=== PATIENT | female | born 1940 | race Two or more races ===

== ENCOUNTER 2024-02-18 15:50 | Inpatient (IN) | payer MEDICARE, OTHER ==
[~2024-02-18] VITALS: Ht 165.1 cm; Wt 64.4 kg
[2024-02-18] MEDS ORDERED: ACETAMINOPHEN 325 MG TABLET PO PRN (16:15)
[2024-02-18 17:30] VITALS: BP 99/56; PULSE 92; RESP 18; TEMP 97.4; O2SAT 96
[2024-02-18] MEDS ORDERED: POLYETHYLENE GLYCOL 3350 17 GM PACKET PO PRN (17:30)
[2024-02-18 17:31] LABS: APPEARANCE,URINE CLEAR (CLEAR); BILIRUBIN,URINE NEGATIVE (NEGATIVE); COLOR,URINE YELLOW (YELLOW); GLUCOSE, URINE (UA) NEGATIVE (NEGATIVE); KETONES,URINE NEGATIVE (NEGATIVE); LEUKOCYTE ESTERASE ,URINE LARGE (NEGATIVE); NITRATE,URINE NEGATIVE (NEGATIVE); OCCULT BLOOD,URINE TRACE (NEGATIVE); PH,URINE 6.5 (5.0-8.0); PROTEIN,URINE 30-70 mg/dL (NEGATIVE); SPECIFIC GRAVITIY, URINE 1.016 (1.003-1.030)
[2024-02-18 17:41] LABS: BACTERIA,URINE Few /HPF (None Seen); RBC,URINE 0-2 /HPF (0-2); SQUAMOUS EPITHELIAL CELL,UR Rare /LPF (None Seen)
[2024-02-18] MEDS ORDERED: APIXABAN 2.5 MG TABLET PO SCH (21:00)
[2024-02-18 21:06] VITALS: BP 112/73; PULSE 100; RESP 18; TEMP 97.9; O2SAT 98
[2024-02-18] MEDS: MELATONIN 3 MG TABLET PO SCH (21:20)
[2024-02-18] MEDS: APIXABAN 2.5 MG TABLET PO SCH (21:20)
[2024-02-18] MEDS: ATORVASTATIN CALCIUM 40 MG TABLET PO SCH (21:21)
[2024-02-18] MEDS: METOPROLOL TARTRATE 25 MG TABLET PO SCH (21:21)
[2024-02-18 23:26] VITALS: O2SAT 98
[2024-02-19] MEDS: ALENDRONATE SODIUM 70 MG TABLET PO SCH (05:44)
[2024-02-19 05:58] LABS: BASOPHILS % (AUTO) 0.9 % (0.0-2.0); EOSINOPHILS % (AUTO) 1.8 % (1.0-6.0); HEMATOCRIT 37.4 % (36-46); HEMOGLOBIN 12.3 g/dL (12.0-16.0); LYMPHOCYTES # (AUTO) 1.7 K/uL (1.0-4.8); LYMPHOCYTES % (AUTO) 22.1 % (22.0-44.0); MEAN CORPUSCULAR HEMOGLOBIN 30.1 pg (26.0-34.0); MEAN CORPUSCULAR HGB CONC 32.8 G/dL (31.0-37.0); MEAN CORPUSCULAR VOLUME 92 fL (80-100); MONOCYTES # (AUTO) 0.7 K/uL (0.1-1.0); NEUTROPHILS # (AUTO) 5.1 K/uL (1.8-7.7); NEUTROPHILS % (AUTO) 66.2 % (40.0-70.0); PLATELET COUNT (AUTO) 334 K/uL (150-450); RED BLOOD CELL COUNT(AUTO) 4.09 MIL/uL (4.00-5.20); RED CELL DISTRIBUTION WIDTH 13.9 % (11.5-14.5); WHITE BLOOD COUNT (AUTO) 7.7 K/uL (4.5-11.0)
[2024-02-19 06:25] LABS: ALANINE AMINOTRANSFERASE 26 U/L (12-78); ALBUMIN 2.5 g/dL (3.4-5.0); ALKALINE PHOSPHATASE 112 U/L (46-116); ANION GAP 1 mmol/L (8-16); ASPARTATE AMINOTRANSFERASE 26 U/L (15-37); BILIRUBIN,TOTAL 0.7 mg/dL (0.1-1.0); CALCIUM, TOTAL 8.7 mg/dL (8.8-10.5); CARBON DIOXIDE 35 mmol/L (22-29); CHLORIDE 102 mmol/L (98-107); CREATININE 0.71 mg/dL (0.60-1.30); GLOMERULAR FILTR. RATE CALC > 60 mL/min (>60); GLUCOSE,RANDOM 118 mg/dL (70-110); SODIUM SERUM 138 mmol/L (136-145); TOTAL PROTEIN, SERUM 6.7 g/dL (6.4-8.2); UREA NITROGEN, BLOOD 22 mg/dL (7-18)
[2024-02-19] MEDS: LEVOTHYROXINE SODIUM 50 MCG TABLET PO SCH (06:30)
[2024-02-19] MEDS: FLUTICASONE FUROATE 100 MCG/INH INHALER [14] IH SCH (08:13)
[2024-02-19] MEDS: CHOLECALCIFEROL (VIT D3) 1,000 UNITS [25 MCG] TABLET PO SCH (08:14)
[2024-02-19] MEDS: FAMOTIDINE 20 MG TABLET PO SCH (08:14)
[2024-02-19] MEDS: ASPIRIN 81 MG CHEWABLE TABLET PO SCH (08:14)
[2024-02-19] MEDS: ETHYL ALCOHOL 62% ANTISEPTIC NASAL SANITIZER 0.6 ML AMPUL NASAL SCH (08:15)
[2024-02-19 09:00] VITALS: BP 139/64; PULSE 87; RESP 18; TEMP 98.1; O2SAT 98
[2024-02-19] MEDS: NITROFURANTOIN MACROCRYSTAL 100 MG CAPSULE PO SCH (09:27)
[2024-02-19 09:47] VITALS: O2SAT 98
[2024-02-19 16:30] VITALS: BP 128/72; PULSE 74; RESP 18; TEMP 98.6; O2SAT 98
[2024-02-19 20:00] VITALS: O2SAT 98
[2024-02-19 21:00] VITALS: BP 112/52; PULSE 77; RESP 18; TEMP 97.7; O2SAT 98
[2024-02-19 22:00] VITALS: BP 104/59; PULSE 95; RESP 18; O2SAT 98
[2024-02-19] MEDS: NITROFURANTOIN MONOHYD/M-CRYST 100 MG CAPSULE [MACROBID] PO SCH (22:39)
[2024-02-20 08:00] VITALS: BP 105/58; PULSE 91; RESP 19; TEMP 97.6; O2SAT 97
[2024-02-20 08:15] VITALS: BP 113/58; PULSE 86; RESP 18
[2024-02-20 08:36] LABS: GLUCOMETER DEV NAME(LOC) 2WR.2B; GLUCOSE,POINT OF CARE 149 MG/DL (70-110)
[2024-02-20] MEDS: FUROSEMIDE 20 MG TABLET PO SCH (08:46)
[2024-02-20 10:00] VITALS: BP 93/46; PULSE 83; RESP 18
[2024-02-20 11:08] VITALS: BP 105/57; PULSE 59; RESP 18
[2024-02-20 16:25] VITALS: BP 110/75; PULSE 69; RESP 18
[2024-02-20] MEDS: METOPROLOL TARTRATE 25 MG TABLET PO SCH (16:28)
[2024-02-20 21:00] VITALS: BP 112/65; PULSE 88; RESP 18; TEMP 98; O2SAT 96
[2024-02-20] MEDS: PSYLLIUM SEED ORANGE SF 5.8 GM/PACKET PO SCH (21:54)
[2024-02-21] VITALS (8 sets, daily range): BP systolic 98–120; BP diastolic 59–74; PULSE 64–88; RESP 18; TEMP 97.7–98.6; O2SAT 97–99
[2024-02-21 09:30] LABS: BASOPHILS % (AUTO) 0.9 % (0.0-2.0); EOSINOPHILS % (AUTO) 3.6 % (1.0-6.0); HEMATOCRIT 36.5 % (36-46); HEMOGLOBIN 12.3 g/dL (12.0-16.0); LYMPHOCYTES # (AUTO) 1.8 K/uL (1.0-4.8); LYMPHOCYTES % (AUTO) 20.2 % (22.0-44.0); MEAN CORPUSCULAR HEMOGLOBIN 30.9 pg (26.0-34.0); MEAN CORPUSCULAR HGB CONC 33.7 G/dL (31.0-37.0); MEAN CORPUSCULAR VOLUME 92 fL (80-100); MONOCYTES # (AUTO) 0.7 K/uL (0.1-1.0); MONOCYTES % (AUTO) 7.5 % (2.0-9.0); NEUTROPHILS % (AUTO) 67.8 % (40.0-70.0); PLATELET COUNT (AUTO) 345 K/uL (150-450); RED BLOOD CELL COUNT(AUTO) 3.99 MIL/uL (4.00-5.20); RED CELL DISTRIBUTION WIDTH 14.7 % (11.5-14.5); WHITE BLOOD COUNT (AUTO) 8.9 K/uL (4.5-11.0)
[2024-02-21 09:40] LABS: ANION GAP 1 mmol/L (8-16); CALCIUM, TOTAL 8.7 mg/dL (8.8-10.5); CARBON DIOXIDE 33 mmol/L (22-29); CHLORIDE 101 mmol/L (98-107); CREATININE 0.68 mg/dL (0.60-1.30); GLOMERULAR FILTR. RATE CALC > 60 mL/min (>60); GLUCOSE,RANDOM 114 mg/dL (70-110); POTASSIUM 4.1 mmol/L (3.5-5.1); SODIUM SERUM 135 mmol/L (136-145); UREA NITROGEN, BLOOD 26 mg/dL (7-18)
[2024-02-21 12:19] LABS: APPEARANCE,URINE CLEAR (CLEAR); BILIRUBIN,URINE NEGATIVE (NEGATIVE); COLOR,URINE YELLOW (YELLOW); GLUCOSE, URINE (UA) NEGATIVE (NEGATIVE); KETONES,URINE NEGATIVE (NEGATIVE); LEUKOCYTE ESTERASE ,URINE MODERATE (NEGATIVE); NITRATE,URINE NEGATIVE (NEGATIVE); OCCULT BLOOD,URINE LARGE (NEGATIVE); PROTEIN,URINE 30-70 mg/dL (NEGATIVE)
[2024-02-21 12:49] LABS: RBC,URINE 51-100 /HPF (0-2)
[2024-02-21 12:50] LABS: BACTERIA,URINE Many /HPF (None Seen); SQUAMOUS EPITHELIAL CELL,UR Many /LPF (None Seen)
[2024-02-21] MEDS: SODIUM CHLORIDE 0.9% 1,000 ML IV ONE (13:25)
[2024-02-22] VITALS (7 sets, daily range): BP systolic 98–120; BP diastolic 63–72; PULSE 60–83; RESP 18–19; TEMP 98–98.4; O2SAT 95–98
[2024-02-23] MEDS: DOCUSATE SODIUM 283 MG/5 ML MINI-ENEMA PR SCH (05:19)
[2024-02-23 07:09] LABS: ANION GAP 5 mmol/L (8-16); CALCIUM, TOTAL 8.5 mg/dL (8.8-10.5); CARBON DIOXIDE 30 mmol/L (22-29); CHLORIDE 102 mmol/L (98-107); CREATININE 0.71 mg/dL (0.60-1.30); GLOMERULAR FILTR. RATE CALC > 60 mL/min (>60); GLUCOSE,RANDOM 137 mg/dL (70-110); POTASSIUM 4.2 mmol/L (3.5-5.1); SODIUM SERUM 137 mmol/L (136-145); UREA NITROGEN, BLOOD 22 mg/dL (7-18)
[2024-02-23 08:00] VITALS: BP 123/64; PULSE 75; RESP 18; TEMP 97.7; O2SAT 97
[2024-02-23 09:45] VITALS: BP 97/58; PULSE 97
[2024-02-23 11:15] VITALS: BP 96/64; PULSE 82; RESP 18
[2024-02-23 11:55] VITALS: BP 114/77; PULSE 64; RESP 18; O2SAT 99
[2024-02-23 15:30] VITALS: BP 106/64; PULSE 84; RESP 18
[2024-02-23 20:00] VITALS: BP 114/63; PULSE 96; RESP 18; TEMP 97.6; O2SAT 97
[2024-02-24] VITALS (12 sets, daily range): BP systolic 87–129; BP diastolic 50–76; PULSE 81–115; RESP 18–20; TEMP 97.5–97.9; O2SAT 96–98
[2024-02-24] MEDS: SODIUM CHLORIDE 0.9% 1,000 ML IV ONE (12:46)
[2024-02-25 08:00] VITALS: BP 96/58; PULSE 126; RESP 19; TEMP 97.7; O2SAT 96
[2024-02-25 08:30] VITALS: O2SAT 96
[2024-02-25] MEDS: 0.9% SODIUM CHLORIDE 10 ML SYRINGE IVP SCH (08:45)
[2024-02-25 13:48] VITALS: BP 118/68; PULSE 103
[2024-02-25 16:36] VITALS: BP 95/56; PULSE 101
[2024-02-25 19:44] VITALS: BP 115/71; PULSE 110; RESP 18; TEMP 97.4; O2SAT 97
[2024-02-25 22:03] VITALS: O2SAT 97
[2024-02-26 08:00] VITALS: BP 118/78; PULSE 93; RESP 18; TEMP 97.5; O2SAT 97
[2024-02-26 15:53] VITALS: BP 93/66; PULSE 78; RESP 18; O2SAT 98
[2024-02-26 18:30] VITALS: BP 126/45; PULSE 61; RESP 18
[2024-02-26 20:42] VITALS: BP 119/71; PULSE 103; RESP 18; TEMP 98.2; O2SAT 96; O2SAT 98
[2024-02-26 22:18] VITALS: O2SAT 98
[2024-02-27 08:00] VITALS: BP 97/58; PULSE 108; RESP 18; TEMP 97.8; O2SAT 94
[2024-02-27 08:02] VITALS: BP 107/64; PULSE 108; RESP 18; O2SAT 97
[2024-02-27] MEDS: MECLIZINE HCL 12.5 MG TABLET PO PRN (10:20)
[2024-02-27] MEDS: ONDANSETRON HCL 4 MG TABLET PO PRN (10:21)
[2024-02-27 15:49] VITALS: BP 100/64; PULSE 88; RESP 19; TEMP 98; O2SAT 98
[2024-02-27 20:01] VITALS: BP 100/66; PULSE 81; RESP 18; TEMP 97.6; O2SAT 95
[2024-02-27 23:52] VITALS: O2SAT 95
[2024-02-28] VITALS (8 sets, daily range): BP systolic 92–115; BP diastolic 52–68; PULSE 76–114; RESP 18; TEMP 97.7–97.9; O2SAT 95–96
[2024-02-28 08:58] LABS: BASOPHILS % (AUTO) 1.2 % (0.0-2.0); EOSINOPHILS % (AUTO) 5.4 % (1.0-6.0); HEMATOCRIT 35.8 % (36-46); HEMOGLOBIN 11.8 g/dL (12.0-16.0); LYMPHOCYTES # (AUTO) 1.8 K/uL (1.0-4.8); LYMPHOCYTES % (AUTO) 22.5 % (22.0-44.0); MEAN CORPUSCULAR HEMOGLOBIN 30.5 pg (26.0-34.0); MEAN CORPUSCULAR VOLUME 93 fL (80-100); MONOCYTES # (AUTO) 0.6 K/uL (0.1-1.0); MONOCYTES % (AUTO) 7.7 % (2.0-9.0); NEUTROPHILS # (AUTO) 4.9 K/uL (1.8-7.7); NEUTROPHILS % (AUTO) 63.2 % (40.0-70.0); PLATELET COUNT (AUTO) 255 K/uL (150-450); RED BLOOD CELL COUNT(AUTO) 3.87 MIL/uL (4.00-5.20); WHITE BLOOD COUNT (AUTO) 7.8 K/uL (4.5-11.0)
[2024-02-28 09:09] LABS: ANION GAP 3 mmol/L (8-16); CALCIUM, TOTAL 8.1 mg/dL (8.8-10.5); CARBON DIOXIDE 34 mmol/L (22-29); CHLORIDE 100 mmol/L (98-107); CREATININE 0.85 mg/dL (0.60-1.30); GLOMERULAR FILTR. RATE CALC > 60 mL/min (>60); GLUCOSE,RANDOM 115 mg/dL (70-110); POTASSIUM 4.6 mmol/L (3.5-5.1); SODIUM SERUM 137 mmol/L (136-145); UREA NITROGEN, BLOOD 28 mg/dL (7-18)
[2024-02-29 07:50] VITALS: BP 103/68; PULSE 63; RESP 18; TEMP 98.3; O2SAT 95
[2024-02-29 12:59] LABS: APPEARANCE,URINE HAZY (CLEAR); BILIRUBIN,URINE NEGATIVE (NEGATIVE); COLOR,URINE YELLOW (YELLOW); GLUCOSE, URINE (UA) NEGATIVE (NEGATIVE); KETONES,URINE NEGATIVE (NEGATIVE); LEUKOCYTE ESTERASE ,URINE LARGE (NEGATIVE); NITRATE,URINE NEGATIVE (NEGATIVE); OCCULT BLOOD,URINE LARGE (NEGATIVE); PROTEIN,URINE 300-600,SEE CONFIRM mg/dL (NEGATIVE); SPECIFIC GRAVITIY, URINE 1.013 (1.003-1.030)
[2024-02-29 13:11] LABS: SULFOSALICYLIC ACID,URINE 3+ (Negative)
[2024-02-29 13:12] LABS: BACTERIA,URINE Few /HPF (None Seen); SQUAMOUS EPITHELIAL CELL,UR Few /LPF (None Seen); WBC,URINE >100 /HPF (0-5)
[2024-02-29 13:55] VITALS: O2SAT 95
[2024-02-29] MEDS: BETHANECHOL CHLORIDE 10 MG TABLET PO SCH (16:56)
[2024-02-29 20:12] VITALS: BP 118/68; PULSE 65; RESP 18; TEMP 97.8; O2SAT 98
[2024-02-29 23:01] VITALS: O2SAT 98
[2024-03-01] VITALS (9 sets, daily range): BP systolic 92–118; BP diastolic 54–76; PULSE 88–134; RESP 18; TEMP 98.2–98.3; O2SAT 96–98
[2024-03-01] MEDS: DOCUSATE SODIUM 283 MG/5 ML MINI-ENEMA PR PRN (05:38)
[2024-03-01] MEDS: MIDODRINE HCL 2.5 MG TABLET PO SCH (12:03)
[2024-03-02 07:50] VITALS: BP 104/55; PULSE 117; RESP 19; TEMP 98.1; O2SAT 95
[2024-03-02 08:30] VITALS: PULSE 98; O2SAT 98
[2024-03-02] MEDS ORDERED: SODIUM CHLORIDE 0.9% 100 ML ONE (09:35)
[2024-03-02] MEDS: DOCUSATE SODIUM 100 MG CAPSULE PO SCH (09:46)
[2024-03-02] MEDS: CefTRIAXone 1 GM/DEXTROSE 50 ML IV SCH (10:19)
[2024-03-02 19:44] VITALS: BP 115/63; PULSE 110; RESP 18; TEMP 97.7; O2SAT 97
[2024-03-02] MEDS: DOCUSATE SODIUM 100 MG/10 ML LIQUID UDCUP GT SCH (20:11)
[2024-03-02 21:44] VITALS: O2SAT 97
[2024-03-03 08:00] VITALS: BP 107/64; PULSE 119; RESP 19; TEMP 97.7; O2SAT 95
[2024-03-03] MEDS: 0.9% SODIUM CHLORIDE 10 ML SYRINGE IVP SCH (08:28)
[2024-03-03 20:00] VITALS: BP 98/62; PULSE 104; RESP 18; TEMP 98; O2SAT 100
[2024-03-03] MEDS: MIDODRINE HCL 5 MG TABLET PO SCH (21:09)
[2024-03-04 08:05] VITALS: BP 100/62; PULSE 88; RESP 18; TEMP 98; O2SAT 98
[2024-03-04 10:06] LABS: BASOPHILS % (AUTO) 0.7 % (0.0-2.0); EOSINOPHILS % (AUTO) 5.2 % (1.0-6.0); HEMATOCRIT 35.9 % (36-46); HEMOGLOBIN 11.9 g/dL (12.0-16.0); LYMPHOCYTES # (AUTO) 1.5 K/uL (1.0-4.8); LYMPHOCYTES % (AUTO) 19.2 % (22.0-44.0); MEAN CORPUSCULAR HEMOGLOBIN 30.6 pg (26.0-34.0); MEAN CORPUSCULAR VOLUME 93 fL (80-100); MONOCYTES # (AUTO) 0.8 K/uL (0.1-1.0); MONOCYTES % (AUTO) 9.5 % (2.0-9.0); NEUTROPHILS # (AUTO) 5.2 K/uL (1.8-7.7); NEUTROPHILS % (AUTO) 65.4 % (40.0-70.0); PLATELET COUNT (AUTO) 199 K/uL (150-450); RED BLOOD CELL COUNT(AUTO) 3.88 MIL/uL (4.00-5.20); RED CELL DISTRIBUTION WIDTH 15.3 % (11.5-14.5)
[2024-03-04 10:24] LABS: ANION GAP 2 mmol/L (8-16); CALCIUM, TOTAL 7.9 mg/dL (8.8-10.5); CARBON DIOXIDE 34 mmol/L (22-29); CHLORIDE 99 mmol/L (98-107); CREATININE 0.65 mg/dL (0.60-1.30); GLOMERULAR FILTR. RATE CALC > 60 mL/min (>60); GLUCOSE,RANDOM 119 mg/dL (70-110); POTASSIUM 4.1 mmol/L (3.5-5.1); SODIUM SERUM 135 mmol/L (136-145); UREA NITROGEN, BLOOD 21 mg/dL (7-18)
[2024-03-04 10:48] VITALS: O2SAT 98
[2024-03-04 16:53] VITALS: BP 98/68; PULSE 99; RESP 18; TEMP 98.4; O2SAT 98
[2024-03-04] MEDS: MIDODRINE HCL 5 MG TABLET PO SCH (16:56)
[2024-03-04 20:00] VITALS: BP 127/72; PULSE 107; RESP 18; TEMP 98.1; O2SAT 96
[2024-03-05] VITALS (10 sets, daily range): BP systolic 95–131; BP diastolic 50–77; PULSE 74–138; RESP 18–19; TEMP 97.8–98; O2SAT 98–100
[2024-03-05] MEDS: DIGOXIN 125 MCG TABLET PEG SCH (12:10)
[2024-03-06] VITALS (7 sets, daily range): BP systolic 96–98; BP diastolic 67–73; PULSE 68–123; RESP 18; TEMP 98–98.2; O2SAT 96–98
[2024-03-06] MEDS ORDERED: SODIUM CHLORIDE 0.9% 250 ML IV ONE (09:17)
[2024-03-07 04:00] VITALS: PULSE 84
[2024-03-07 08:00] VITALS: BP 111/65; PULSE 99; RESP 18; TEMP 97.7; O2SAT 0; O2SAT 98
[2024-03-07 20:00] VITALS: BP 100/70; PULSE 109; RESP 18; TEMP 98.1; O2SAT 96
[2024-03-08 08:00] VITALS: BP 109/61; PULSE 88; RESP 19; TEMP 97.7; O2SAT 97
[2024-03-08 12:21] VITALS: BP 94/64; PULSE 97; RESP 18
[2024-03-08 16:30] VITALS: BP 116/81; PULSE 92; RESP 18
[2024-03-08 20:10] VITALS: BP 99/61; PULSE 90; RESP 18; TEMP 97.6; O2SAT 97
[2024-03-08 22:24] VITALS: O2SAT 97
[2024-03-09] VITALS (7 sets, daily range): BP systolic 102–141; BP diastolic 59–106; PULSE 95–106; RESP 18–19; TEMP 97.6–97.9; O2SAT 97
[2024-03-10] MEDS ORDERED: DIGO125T84 PEG (05:06)
[2024-03-10] MEDS ORDERED: LEVO50 PEG (05:06)
[2024-03-10] MEDS ORDERED: ASPI-1444 PEG (05:06)
[2024-03-10] MEDS ORDERED: APIX2.5T PEG (05:09)
[2024-03-10] MEDS ORDERED: FAMO20 PEG (05:11)
[2024-03-10] MEDS ORDERED: BETH5 PEG (05:12)
[2024-03-10] MEDS ORDERED: CHOL25TA4 PEG (05:16)
[2024-03-10] MEDS ORDERED: ATOR40TA28 PEG (05:17)
[2024-03-10] MEDS ORDERED: ALEN70TA65 PEG (05:18)
[2024-03-10 08:00] VITALS: BP 109/59; PULSE 98; RESP 18; TEMP 97.8; O2SAT 98
[2024-03-10 09:27] LABS: HEMATOCRIT 38.8 % (36-46); HEMOGLOBIN 12.6 g/dL (12.0-16.0); LYMPHOCYTES % (AUTO) 20.4 % (22.0-44.0); MEAN CORPUSCULAR HEMOGLOBIN 30.3 pg (26.0-34.0); MEAN CORPUSCULAR HGB CONC 32.4 G/dL (31.0-37.0); MEAN CORPUSCULAR VOLUME 94 fL (80-100); NEUTROPHILS % (AUTO) 65.7 % (40.0-70.0); PLATELET COUNT (AUTO) 183 K/uL (150-450); RED BLOOD CELL COUNT(AUTO) 4.14 MIL/uL (4.00-5.20); RED CELL DISTRIBUTION WIDTH 15.5 % (11.5-14.5); WHITE BLOOD COUNT (AUTO) 6.2 K/uL (4.5-11.0)
[2024-03-10 09:28] LABS: BASOPHILS % (AUTO) 0.7 % (0.0-2.0); LYMPHOCYTES # (AUTO) 1.3 K/uL (1.0-4.8); MONOCYTES # (AUTO) 0.5 K/uL (0.1-1.0); MONOCYTES % (AUTO) 8.2 % (2.0-9.0); NEUTROPHILS # (AUTO) 4.1 K/uL (1.8-7.7)
[2024-03-10 09:38] LABS: ANION GAP 7 mmol/L (8-16); CALCIUM, TOTAL 8.4 mg/dL (8.8-10.5); CARBON DIOXIDE 30 mmol/L (22-29); CHLORIDE 101 mmol/L (98-107); CREATININE 0.65 mg/dL (0.60-1.30); GLOMERULAR FILTR. RATE CALC > 60 mL/min (>60); GLUCOSE,RANDOM 138 mg/dL (70-110); POTASSIUM 4.5 mmol/L (3.5-5.1); SODIUM SERUM 138 mmol/L (136-145); UREA NITROGEN, BLOOD 21 mg/dL (7-18)
== END 2024-03-10 17:00 | DRG 56 ==
LOC: 2WR 16:16
PROVIDERS: ADMIT Physical Medicine & Rehabilitation; ATTEND Physical Medicine & Rehabilitation
DX: G81.91 Hemiplegia, unspecified affecting right dominant side (principal); I50.23 Acute on chronic systolic (congestive) heart failure; I63.211 Cerebral infarction due to unspecified occlusion or stenosis of right vertebral artery; E87.1 Hypo-osmolality and hyponatremia; N39.0 Urinary tract infection, site not specified; R04.2 Hemoptysis; I42.8 Other cardiomyopathies; I48.20 Chronic atrial fibrillation, unspecified; R13.10 Dysphagia, unspecified; R47.1 Dysarthria and anarthria; R31.9 Hematuria, unspecified; I34.0 Nonrheumatic mitral (valve) insufficiency; E88.09 Other disorders of plasma-protein metabolism, not elsewhere classified; E78.5 Hyperlipidemia, unspecified; R62.7 Adult failure to thrive; I11.0 Hypertensive heart disease with heart failure; R53.1 Weakness; K59.00 Constipation, unspecified; R29.810 Facial weakness; I95.9 Hypotension, unspecified; Z74.09 Other reduced mobility; Z95.818 Presence of other cardiac implants and grafts; Z79.01 Long term (current) use of anticoagulants; Z68.23 Body mass index [BMI] 23.0-23.9, adult
CPT/HCPCS: 70450; 80048; 80053; 81001; 81002; 82962; 83036; 85025; 87081; 87086; 87186; 92507; 92523; 92526; 93005; 93306; 97110; 97112; 97163; 97167; 97530; 97535; 99366; 99368; J0696; J7030; J7050; Q0162